=== PATIENT | female | born 1950 | race Caucasian/White ===

== ENCOUNTER 2024-03-02 07:08 | Day surgery (SDC) | payer MEDICARE, OTHER ==
[~2024-03-02] VITALS: Ht 152.4 cm; Wt 90.9 kg
[2024-03-02] MEDS ORDERED: ALBUTEROL SULFATE 2.5 MG/0.5 ML NEB SOLUTION NEB ONE (07:09)
[2024-03-02] MEDS ORDERED: MIDAZOLAM HCL 2 MG/2 ML VIAL ONE (07:27)
[2024-03-02] MEDS ORDERED: FentaNYL CITRATE PF 100 MCG/2 ML VIAL ONE (07:28)
[2024-03-02] MEDS ORDERED: SODIUM CHLORIDE 0.9% 0 ML ONE (07:46)
[2024-03-02] MEDS ORDERED: SODIUM CHLORIDE 0.9% 1,000 ML ONE (07:47)
[2024-03-02] MEDS ORDERED: ASPI-1450 PO (07:48)
[2024-03-02] MEDS ORDERED: FAMO20 PO (07:49)
[2024-03-02] MEDS ORDERED: MONT-35 PO (07:50)
[2024-03-02] MEDS ORDERED: GABA-1181 PO (07:57)
[2024-03-02] MEDS ORDERED: BACL10TA PO (07:59)
[2024-03-02] MEDS ORDERED: PROM118S5 PO (08:01)
[2024-03-02] MEDS ORDERED: DULO-114 PO (08:02)
[2024-03-02] MEDS ORDERED: DICL100G60 TP (08:04)
[2024-03-02] MEDS ORDERED: PROP1DRO (08:06)
[2024-03-02] MEDS ORDERED: FLUT1BLS IH (08:08)
[2024-03-02] MEDS: SODIUM CHLORIDE 0.9% 1,000 ML IV ONE (08:10)
[2024-03-02] MEDS ORDERED: ATOR40TA28 PO (08:14)
[2024-03-02 09:55] VITALS: PULSE 80; RESP 18; O2SAT 98
[2024-03-02] MEDS ORDERED: MethylPREDNISolone SOD SUCC 125 MG/2 ML VIAL ONE (10:27)
[2024-03-02] MEDS: MethylPREDNISolone SOD SUCC 125 MG/2 ML VIAL IVP ONE (10:31)
[2024-03-02] MEDS ORDERED: BENZOCAINE 20% 50 MCG/SPRAY 57 GM TP ONE (16:43)
[2024-03-02] MEDS ORDERED: LIDOCAINE 2% 11 ML JELLY TP ONE (16:44)
[2024-03-02] MEDS ORDERED: LIDOCAINE 4% 50 ML SOLUTION ONE (16:46)
== END 2024-03-02 11:30 | disposition home or self-care (01) ==
LOC: SURGERY 07:08
PROVIDERS: ATTEND Internal Medicine Critical Care Medicine
DX: R05.3 Chronic cough (principal); R06.2 Wheezing; J38.4 Edema of larynx; B37.0 Candidal stomatitis; R91.8 Other nonspecific abnormal finding of lung field; J98.8 Other specified respiratory disorders; J84.10 Pulmonary fibrosis, unspecified; J98.01 Acute bronchospasm; Z85.21 Personal history of malignant neoplasm of larynx
CPT/HCPCS: 87206; 87101; 87220; 87070; 88108; 31623; 31624; 71045; 87015; J3010; J2250; J2930; Q9967; J7030; J7613; Z7610